=== PATIENT | female | born 1960 | race Caucasian/White ===

== ENCOUNTER → 2020-01-26 | Outpatient (CLI) | payer OTHER ==
[~2020-01-26] MED LIST: COLACE100 MG PO; DESYREL150 MG PO; DILTIAZEM ER180 M2 PO; FLONASE 0.05%50 MCG NASAL; MEDROLDOSEPACK PO; MOBIC15 MG PO; NEURONTIN 300M300 M2 PO; NORFLEX100 MG PO; VITAMIN D3 COM1 EACH PO; ZESTORETIC 20-1 EAC1 PO
--- NOTE | 2020-02-07 13:31 | PAINCON ---
[address] [address] PAIN MANAGEMENT CONSULTATION Name: SHRADDHA PÉREZ Room: [facility].#: [id number] Admission: 01/26/20 Attend Phys: Winsome Sultana MD Discharge: Date of : 64 Report #: [id number] THIS REPORT FOR: //name// cc: Mercedes Huynh MD, Jennifer MD ~ THIS REPORT FOR: //name// CC: Mercedes Sultana DATE OF SERVICE: 01/26/2020 CHIEF COMPLAINT: Low back pain for 3 months involving the right leg. HISTORY: The patient is a 59-year-old female who has been referred to the pain clinic because of pain. She rates her pain today as 5/10. She has been having pain and discomfort for about the last 3 months. She is experiencing more numbness than pain. Sometimes she rates it as a 7-8/10. Pain is worse when she is standing as well as with walking. Pain is better when she is sitting and she has used ice on her back. She describes it as intermittent, brief momentary burning, cramping, sharp. It involves the lower portion of her back, and radiates down on the left as well as the right in the posterior portion of her legs. She has tried meloxicam and muscle relaxants. She sometimes feels as though there is far like pain down into her legs and buttocks area. She has tried chiropractic treatment without long-term benefit. She feels that she has difficulty lifting items. She is unable to carry things. Her legs feel weak at times. ALLERGIES: BACTRIM causes flu-like symptoms, HYDROCODONE causes itching, METOPROLOL XL, CIPRO, rash/hives, AUGMENTIN, itching, MORPHINE SULFATE, nausea and vomiting side effects. PAST MEDICAL HISTORY: Hypertension. PAST SURGICAL HISTORY: Tubal ligation in 1998, breast reduction 2004, lithotripsy x 3 for kidney stones [id number], vein ablation 2009. 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 She has not worked in 10 years. REVIEW OF SYSTEMS: Lost 10 pounds, fatigue, weakness, wears glasses, kidney stones, numbness and tingling sensation, varicose vein removal, difficulty walking, back pain, muscle cramping, weakness of joints, joint stiffness, joint pain. LABORATORY DATA: MRI of the lumbar spine dated 12/18/2019 T10, T[place] [address] PAIN MANAGEMENT CONSULTATION Name: SHRADDHA PÉREZ Room: [facility]#: [id number] Admission: 01/26/20 Attend Phys: Winsome Sultana MD Discharge: Date of : 64 Report #: [id number] with endplate spurring noted along with facet hypertrophy. Moderate to severe right and moderate left foraminal narrowing. There is mild central canal stenosis. Level only evaluated at the sagittal plane. Thecal sac 0.9 cm AP. 1. L1-L2 disk bulge and facet hypertrophy noted with mild canal stenosis. There is mild bilateral foraminal narrowing. Thecal sac 0.9 cm AP. 2. L2-L3, there is mild central stenosis and lateral recess narrowing bilaterally. Thecal sac 0.9 mm AP. 3. L3-L4, in addition to retrolisthesis, there is a disk bulge and endplate spurring. There is moderate to severe facet and ligamentum flavum hypertrophy. Canal stenosis is moderate to severe, with lateral recess narrowing bilaterally. Foraminal narrowing is high-grade bilaterally as well, greater on the left. Thecal sac is 0.6 cm AP. 4. L4-L5 foraminal narrowing is severe and right and [id number] left. Thecal sac 0.5 cm AP. There is fluid in the facets. Canal stenosis is severe with lateral recess narrowing bilaterally. L5-S1, there is facet hypertrophy. There is lateral recess narrowing bilaterally. There is [id number]-[id number]-[id number] right and mild left foraminal narrowing thecal sac 1 cm AP. PAIN CLINIC ASSESSMENT AND PQRS: 1. Height 5 feet 7 inches, weight 210 pounds, BMI is 39.6. 2. Vital signs: Blood pressure 187/110. Second Blood pressure 136/103, pulse 93, respiratory rate 20, room air saturation is 98%, temperature is 98.6. 3. Pain intensity 5/10. 4. Fall history: The patient has not fallen in the last 3 months. 5. Blood thinner. The patient is not on a blood thinning medication. 6. Hypertension. The patient is being treated for hypertension. 7. Opioids greater than 6 weeks. The patient receives medication from her primary. 8. Risk assessment tool, low for opioid use. 9. Functional assessment tool reviewed. 10. Recreational drug use. The patient denies. 11. Tobacco: The patient denies use of tobacco. PHYSICAL EXAMINATION: GENERAL: The patient is a well-developed, well-nourished female. Appears her stated age. She is alert and oriented x 3. Her affect is appropriate. Speech is fluent. HEENT: Normocephalic, atraumatic. Extraocular eye muscles intact. Sclerae nonicteric. Mucous membranes are moist. NECK: Without adenopathy or JVD. The patient is wearing a facial covering. HEART: Regular rate. LUNGS: Clear. ABDOMEN: Nontender. EXTREMITIES: Upper extremity muscle strength judged to be 5-/5 for the major muscle groups in the upper extremity. Lower extremity, the patient complains of pain and discomfort in the lower portion of her back [place] [address] PAIN MANAGEMENT CONSULTATION Name: SHRADDHA PÉREZ Room: [facility]#: [id number] Admission: 01/26/20 Attend Phys: Winsome Sultana MD Discharge: Date of : 64 Report #: [id number] the buttocks and sciatic and areas down into the L5-S1 dermatomal distribution with numbness and tingling as well as weakness perception in the lower extremities. IMPRESSION: 1. Spinal stenosis in the low back area with pain radiating down into the lower extremities with increased discomfort with prolonged standing and with activity. 2. Hypertension. RECOMMENDATIONS: We discussed treatment options with the patient. At this juncture, I think it would be reasonable for her to try physical therapy. A script has been provided. The patient will also try a nonsteroidal anti-inflammatory medication. She has been given a Medrol Dosepak to take in the interim. She will continue with the Mobic medication. She will continue with muscle relaxants orphenadrine 100 mg b.i.d. She will return to the Pain Clinic. The option of an epidural steroid injection are open. We would like to thank you for letting us participate in her care. We hope she continues to improve. <ELECTRONICALLY SIGNED> By: Winsome Sultana MD 02/07/20 [id number]. Redd Sultana MD /nt
== END ==
LOC: M.PC 08:14
PROVIDERS: ATTEND Anesthesiology Pain Medicine
DX: M48.061 Spinal stenosis, lumbar region without neurogenic claudication (principal); M79.604 Pain in right leg; I10 Essential (primary) hypertension; F11.20 Opioid dependence, uncomplicated